=== PATIENT | male | born 1985 | race Caucasian/White ===

== ENCOUNTER 2022-10-23 15:21 | Emergency (ER) | payer OTHER, SELFPAY ==
[2022-10-23] VITALS (34 sets, daily range): BP systolic 100–203; BP diastolic 64–151; PULSE 89–163; RESP 16–32; TEMP 36.4; O2SAT 96–100
--- NOTE | 2022-10-23 15:22 | W.ED.PSYCHS ---
HPI - Psych General: Chief Complaint: Psychiatric Symptoms Stated Complaint: psych Time Seen by Provider: 10/23/22 15:22 Limitations: altered mental status History of Present Illness: Mr. Grovse is a 37-year-old gentleman with unclear past medical history, possibly seizures, presenting to the emergency department for psychiatric evaluation. The patient himself does not provide significant history. He makes multiple statements about recognizing individuals in the emergency department and says that we are in [place]. He also says that his children were born here. He apparently had seizures in route from [place] to [place] via vehicle with his family and was evaluated in [place]. He was started on Keppra and then became agitated over an argument while driving through [facility]. He left the vehicle, which was stopped at the time, and was initially calm and cooperative for EMS however subsequently became agitated. History otherwise limited by patient's current mental state. Associated symptoms: Reports delusions Review of Systems General: Reports: ROS unobtainable due to mental status Physical Exam Const: COMMON NORMALS: alert GENERAL APPEARANCE: cooperative and well developed HENMT: COMMON NORMALS: normocephalic and atraumatic HEAD & SCALP: normocephalic and atraumatic OTHER: Edentulous with upper dentures noted. Eye: COMMON NORMALS: conjunctivae normal CONJUNCTIVA: Yes conjunctivae normal SCLERA: sclerae normal Neck/C-Spine: COMMON NORMALS: supple GENERAL: Yes trachea midline Resp: COMMON NORMALS: normal respiratory effort EFFORT & INSPECTION: Yes able to speak in complete sentences Cardio: COMMON NORMALS: regular rate and regular rhythm RATE: regular rate RHYTHM: regular rhythm GI: COMMON NORMALS: Soft to palpation PALPATION: Yes Soft to palpation and No Tenderness to palpation present (GI) Extremity: GENERAL: Yes normal exam except as noted and No edema Neuro: COMMON NORMALS: moves all extremities SENSORIUM/ORIENTATION: Yes alert and Yes Orientation impaired Psych: ATTITUDE: Yes evasive MOOD & AFFECT: Yes irritable THOUGHT PROCESS: confused THOUGHT CONTENT: Yes delusions INSIGHT: Poor insight present (Psych) JUDGEMENT: Poor judgement present (Psych) Face to Face: Restrn/Seclusion Events leading up to initiation: Demonstrating self-destructive behavior (cutting, hitting coronado etc.) and Combative/Striking out at staff or others Evaluation of patient's immediate situation: Signs of psychological distress Patient reaction since intervention applied: Behaviors/threats have lessened, but still present Recent labs reviewed: Yes Review of medications: Yes Patient's current medical/behavioral condition: No new concerns since last ROS Need for restraint or seclusion is: Continued Attending notified: Attending completed assessment Procedures Intubation Time out performed: Yes sedative: Etomidate Mg Given: 25 paralytic: Rocuronium Mg Given: 70 ET Tube Size: 8 ET Tube Uncuffed: No Tube Secured Depth (cm): 23 Tube Secured Location: lips Tube Placement Confirmation: visualized tube passing through cords, equal breath sounds bilaterally, no breath sounds over epigastrium and confirmation by capnometry Patient Tolerated Procedure: well and no complications Lumbar Puncture Time Out Performed: Yes Patient Position: right lateral decubitus Skin Prep: Povidone-Iodine 1% Local Anesthetic: lidocaine 1% and with epi Amount of anesthesia used (mL): 8 Spinal Needle Gauge: 20G Interspace Used: L4-L5 Opening Pressure (cmH20): 15 Fluid Initially Obtained: clear Complications: none Course Vital Signs: Vital signs: Vital Signs Temperature 97.5 F L 10/23/22 21:41 Pulse Rate 99 10/24/22 00:20 Respiratory Rate 21 H 10/24/22 00:20 Blood Pressure 127/104 10/24/22 00:15 Pulse Oximetry 100 10/24/22 00:25 Oxygen Delivery Me thod Mechanical Ventil ation 10/23/22 23:50 Fraction of Inspir ed Oxygen 30 10/23/22 23:50 MDM - Psych Medical Decision Making 37-year-old gentleman with unclear history presenting with altered mental status. Patient exhibits delusions and evidence of psychosis. Attempted verbal de-escalation which was unsuccessful and subsequently Ativan and Haldol ordered. Patient initially had improvement and then subsequently had reinitiation of aggressive behaviors that was not able to be verbally de-escalated. He required restraints and was serially reassessed per protocol by [id number] reassessment. He subsequently required additional doses of medication including additional benzodiazepines and Geodon for recurrent escalated behavior and threats to self and others. Laboratory studies reveals no leukocytosis, hemoglobin is normal and normal platelet count. Metabolic panel with hypokalemia and evidence of mild metabolic stress likely secondary to toxidrome. Mild transaminitis, normal T. bili. Potassium replenishment ordered. Alcohol level is elevated with UDS pending. Toxidrome is not consistent with simple alcohol intoxication. Patient continued to require additional doses of medication and showed no evidence of clearing. He continues to be markedly agitated including fighting restraints. His vital signs noted worsening tachycardia and at that point I made the decision for patient's safety and further ED evaluation to rule out life-threatening condition that patient required intubation. Prior to intubation no evidence of seizure or abnormal muscle tone/movements. Intubated successfully without complication. X-ray reviewed at bedside with satisfactory ET tube positioning. Postintubation ABG satisfactory with down titrating of FiO2 targeted to SPO2. UDS notable for positive benzodiazepines which are likely iatrogenic. Urinalysis with hematuria which is trace likely secondary to trauma related to Rodgers catheter. Postintubation patient began to have what appeared to be tonic-clonic seizure type episodes and intermittent fasciculations in bilateral upper and lower extremities. He had increased reflexes. This was treated with benzodiazepines in addition to postintubation sedation with fentanyl and propofol including boluses with clinical improvement. Given possibility of status epilepticus or otherwise primary neurologic abnormality with recurrent seizures patient was given phenytoin load. I avoided Keppra given possibility of adverse reaction though I am unsure of prior use and number of doses that patient had, lower clinical suspicion however still avoided out of abundance of caution. Lumbar puncture performed under emergent conditions to evaluate for life-threatening central nervous system infection and cell count is unremarkable. Ultimately given seizure-like episodes with unclear etiology of clinical presentation I believe that the patient requires transfer for higher level of care including critical care with ability to perform inpatient EEG. Patient was accepted by critical care physician at [facility] in [place] and requires emergent transfer via expeditious means for further inpatient evaluation and treatment. Patient transferred in critical but stable condition. Additional treatments in ED included potassium replenishment, crystalloid fluid boluses of 2 L, banana bag. Sedation for mechanical ventilation with propofol and fentanyl requiring intermittent boluses and titration for adequate sedation. Blood cultures obtained during ED course and pending. Send out lab for meningeal encephalitis viral panel pending. The exact etiology of patient's symptoms remains unclear. There certainly are limitations to urine drug screen and toxic ingestion remains a possibility however differential had to remain broad given urinalysis results. Seizure disorder/status epilepticus additionally a strong consideration. Subsequent to acceptance at outside facility I did receive supplemental information provided by family to nurse that patient does have a history of alcohol abuse and possible seizures in this context though this is still limited. Alcohol withdrawal would also be a consideration however withdrawal to the point of psychosis with a alcohol level still in the 100s which require significant daily consumption. Additionally I would have expected more clinical improvement from benzodiazepines and antipsychotics if this were the case. ED course was significantly prolonged given evolution of patient's clinical presentation and therefore evolution of predicted disposition. Initially patient presented like psychosis or sympathomimetic ingestion and would have been admitted to neuropsych unit if calm, subsequently he would have required improvement in psychosis and electrolyte replenishment. He subsequently developed possible seizure-like activity as noted and therefore required transfer. Medical Records I reviewed the patient's medical records. Lab Data I reviewed the patient's lab results. 10/23/22 16:20 10/23/22 16:20 Radiology Impressions Chest X-Ray 10/23/22: IMPRESSION: No acute findings. Head CT 10/23/22: IMPRESSION: 1. No acute intracranial abnormality. Laboratory Results WBC 6.3 10^3/uL (4.0-10.0) 10/23/22 16:20 RBC 4.32 10^6/uL (4.1-5.3) 10/23/22 16:20 Hgb 14.8 g/dL (11.7-16.6) 10/23/22 16:20 Hct 42.8 % (42.0-52.0) 10/23/22 16:20 MCV 99.1 fl (80-94) H 10/23/22 16:20 MCH 34.3 pg (28.0-34.0) H 10/23/22 16:20 MCHC 34.6 g/dL (30.0-36.0) 10/23/22 16:20 RDW 11.2 % (12.1-15.1) L 10/23/22 16:20 Plt Count 150 10^3/cmm (130-400) 10/23/22 16:20 MPV 11.4 fL (7.4-10.4) H 10/23/22 16:20 Neut % (Auto) 68.3 % 10/23/22 16:20 Lymph % (Auto) 14.7 % 10/23/22 16:20 Garrard % (Auto) 15.3 % 10/23/22 16:20 Eos % (Auto) 0.3 % 10/23/22 16:20 Baso % (Auto) 0.8 % 10/23/22 16:20 Neut # (Auto) 4.28 10^3/uL (1.8-7.7) 10/23/22 16:20 Lymph # (Auto) 0.9 10^3/uL (0.8-4.8) 10/23/22 16:20 Garrard # (Auto) 1.0 10^3/uL (0.2-0.9) H 10/23/22 16:20 Eos # (Auto) 0.0 10^3/uL (0.0-0.8) 10/23/22 16:20 Baso # (Auto) 0.1 10^3/uL (0.0-0.1) 10/23/22 16:20 Nucleated RBC % (auto) 0 % 10/23/22 16:20 Nucleated RBCs # 0.0 /100WBC 10/23/22 16:20 Specimen Type Arterial 10/23/22 20:09 Sample Site Brachial, left 10/23/22 20:09 ABG pH 7.42 (7.35-7.45) 10/23/22 20:09 ABG pCO2 37.7 mmHg (35-45) 10/23/22 20:09 ABG pO2 166.0 mmHg (80.0-100.0) H 10/23/22 20:09 ABG HCO3 24.6 mmol/L (22-26) 10/23/22 20:09 ABG O2 Saturation 99.9 10/23/22 20:09 ABG Base Excess 0.3 mmol/L (-2.0-2.0) 10/23/22 20:09 Juan Francisco Test Pos 10/23/22 20:09 A-a O2 Gradient 8.9 mmHg (5-10) 10/23/22 20:09 Hematocrit 45.6 % (42-52) 10/23/22 20:09 Hgb O2 Saturation 97.5 % (95-100) 10/23/22 20:09 Carboxyhemoglobin 2.2 %THgb (0.4-20.1) 10/23/22 20:09 Methemoglobin 0.2 % (0.4-1.5) L 10/23/22 20:09 Total Hemoglobin 14.9 g/dL (14-18) 10/23/22 20:09 Sodium 141.0 mmol/L (131-143) 10/23/22 20:09 Potassium 2.6 mmol/L (3.5-5.0) L 10/23/22 20:09 Glucose 113.0 mg/dL (70-115) 10/23/22 20:09 Ionized Calcium 1.1 mmol/L (1.1-1.4) 10/23/22 20:09 O2 Delivery Device Vent 10/23/22 20:09 FiO2 40.0 % 10/23/22 20:09 Tidal Volume 0.50 10/23/22 20:09 PEEP 7.0 cmH20 10/23/22 20:09 Gutter Mouth Cutter ID [email or web address] 10/23/22 20:09 Sodium 136 mmol/L (136-145) 10/23/22 16:20 Potassium 2.7 mmol/L (3.5-5.1) L* 10/23/22 16:20 Chloride 96 mmol/L (98-107) L 10/23/22 16:20 Carbon Dioxide 20 mmol/L (22-29) L 10/23/22 16:20 Anion Gap 22.7 (5-19) H 10/23/22 16:20 BUN 3 mg/dL (6-20) L 10/23/22 16:20 Creatinine 0.7 mg/dL (0.7-1.2) 10/23/22 16:20 GFR Calculation 127.6 mL/min (90-130) 10/23/22 16:20 Glucose 107 mg/dL (65-115) 10/23/22 16:20 Calculated Osmolality 279 mOsm/kg (285-295) L 10/23/22 16:20 Calcium 8.6 mg/dL (8.5-10.5) 10/23/22 16:20 Total Bilirubin 0.7 mg/dL (0.15-1.2) 10/23/22 16:20 AST 116 U/L (0-40) H 10/23/22 16:20 ALT 83 U/L (0-41) H 10/23/22 16:20 Alkaline Phosphatase 142 U/L (40-130) H 10/23/22 16:20 Creatine Kinase 256 U/L (39-308) 10/23/22 16:20 Total Protein 6.6 g/dL (6.6-8.7) 10/23/22 16:20 Albumin 3.8 g/dL (3.5-5.2) 10/23/22 16:20 Globulin 2.8 g/dL (1.3-4.6) 10/23/22 16:20 TSH 2.47 uIU/mL (0.27-4.20) 10/23/22 16:20 Urine Color Yellow (Yellow) 10/23/22 20:05 Urine Appearance Clear (CLEAR) 10/23/22 20:05 Urine pH 5 (5-7) 10/23/22 20:05 Ur Specific Scott 1.020 (1.005-1.030) 10/23/22 20:05 Urine Protein Neg (Negative) 10/23/22 20:05 Urine Glucose (UA) Norm (Normal) 10/23/22 20:05 Urine Ketones Negative (Negative) 10/23/22 20:05 Urine Blood 2+ (Negative) H 10/23/22 20:05 Urine Nitrate Negative (Negative) 10/23/22 20:05 Urine Bilirubin Neg (Negative) 10/23/22 20:05 Urine Urobilinogen Norm mg/dL (Negative) 10/23/22 20:05 Ur Leukocyte Esterase Negative (Negative) 10/23/22 20:05 Urine RBC 5-10 /hpf (0-2) H 10/23/22 20:05 Urine WBC 0-4 /hpf (0-5) H 10/23/22 20:05 Ur Squamous Epith Cells 0-4 /hpf (0-5) H 10/23/22 20:05 Amorphous Sediment Not Reportable 10/23/22 20:05 Urine Bacteria Not Reportable 10/23/22 20:05 CSF Appearance Clear (CLEAR) 10/23/22 22:45 CSF Color Colorless (COLORLESS) 10/23/22 22:45 CSF Specific Scott 1.005 10/23/22 22:45 CSF WBC 0 /uL (0-5) 10/23/22 22:45 CSF RBC 0 10^3/uL (0-0) 10/23/22 22:45 CSF Mononuclear # Auto Not Reportable 10/23/22 22:45 CSF Mononuclear WBCs % Not Reportable 10/23/22 22:45 CSF Polynuclear WBCs # Not Reportable 10/23/22 22:45 CSF Polynuclear WBCs % Not Reportable 10/23/22 22:45 CSF Diff Comment Yes 10/23/22 22:45 CSF Glucose 78 mg/dL (40-70) H 10/23/22 22:45 CSF Total Protein 25 mg/dL (15-45) 10/23/22 22:45 CSF Lyme IgG Ab 45 kDa Cancelled 10/23/22 Unknown Salicylates < 0.3 mg/dL (3-10) L 10/23/22 16:20 Urine Opiates Screen Negative ng/mL (Negative) 10/23/22 20:05 Acetaminophen < 5.0 ug/mL (10-30) L 10/23/22 16:20 Ur Barbiturates Screen Negative ng/mL (Negative) 10/23/22 20:05 Ur Phencyclidine Scrn Negative ng/mL (Negative) 10/23/22 20:05 Ur Amphetamines Screen Negative ng/mL (Negative) 10/23/22 20:05 U Benzodiazepines Scrn Positive ng/mL (Negative) H 10/23/22 20:05 Urine Cocaine Screen Negative ng/mL (Negative) 10/23/22 20:05 U Marijuana (THC) Screen Negative ng/mL (Negative) 10/23/22 20:05 Ethyl Alcohol 149 mg/dL (0-10) H 10/23/22 16:20 Lyme Ab (Western Blot) Cancelled 10/23/22 Unknown Lyme IgG 18 kDa Band Cancelled 10/23/22 Unknown Lyme IgG 23 kDa Band Cancelled 10/23/22 Unknown Lyme IgG 28 kDa Band Cancelled 10/23/22 Unknown Lyme IgG 30 kDa Band Cancelled 10/23/22 Unknown Lyme IgG 39 kDa Band Cancelled 10/23/22 Unknown Lyme IgG 41 kDa Band Cancelled 10/23/22 Unknown Lyme IgG 58 kDa Band Cancelled 10/23/22 Unknown Lyme IgG 66 kDa Band Cancelled 10/23/22 Unknown Lyme IgG 93 kDa Band Cancelled 10/23/22 Unknown Lyme IgM Ab (WB) Cancelled 10/23/22 Unknown Lyme Disease IgG Ab (IFA) Cancelled 10/23/22 Unknown Lyme IgG Ab (Immblot) Cancelled 10/23/22 Unknown Lyme IgM 23 kDa Band Cancelled 10/23/22 Unknown Lyme IgM 39 kDa Band Cancelled 10/23/22 Unknown Lyme IgM 41 kDa Band Cancelled 10/23/22 Unknown E. chaffeensis IgG Ab Cancelled 10/23/22 Unknown E. chaffeensis IgM Ab Cancelled 10/23/22 Unknown E. chaffeensis Interp Cancelled 10/23/22 Unknown E. chaffeensis Comment Cancelled 10/23/22 Unknown Rickettsia IgG Titer Cancelled 10/23/22 Unknown Rickettsia IgG Ab Cancelled 10/23/22 Unknown Rickettsia IgM Titer Cancelled 10/23/22 Unknown Rickettsia IgM Ab Cancelled 10/23/22 Unknown Critical Care Time Critical Care Time: Critical Care Time: Yes Total Critical Care Time: 160 Attestation: Due to a high probability of clinically significant, possibly life threatening deterioration, the patient required my highest level of attention and preparedness to intervene emergently and I personally spent this critical care time directly and personally managing the patient. This critical care time included obtaining a history; examining the patient; pulse oximetry; ordering and review of laboratory and imaging studies; arranging urgent treatment with development of a management plan; evaluation of patient's response to treatment; frequent reassessment; and, discussions with other providers as applicable. It was exclusive of separately billable procedures. Primary system involved is neuro. Discharge Plan Discharge Patient Disposition: Xfer Short-Term Hosp Clinical Impression: Acute psychosis, Acute alteration in mental status, Alcohol intoxication, Observed seizure-like activity, Acute hypokalemia, Transaminitis Condition: Stable Coding Level of Care Code ED Intake Specialist for Marleny Gil
--- NOTE | 2022-10-23 15:31 | CTR_ITS ---
PROCEDURE INFORMATION: Exam: CT Head Without Contrast Exam date and time: 10/23/2022 8:33 PM Age: 37 years old Clinical indication: Altered mental status/memory loss; Patient HX: AMS. Severe disorientation with history of seizure disorder. Patient required intubation due to losing airway. TECHNIQUE: Imaging protocol: Computed tomography of the head without contrast. Radiation optimization: All CT scans at this facility use at least one of these dose optimization techniques: automated exposure control; mA and/or kV adjustment per patient size (includes targeted exams where dose is matched to clinical indication); or iterative reconstruction. REPORTING DATA: Count of CT and Cardiac NM exams in prior 12 months: This patient has received 0 known CTs and 0 known cardiac nuclear medicine studies in the 12 months prior to the current study. COMPARISON: No relevant prior studies available. RADIATION DOSE METRICS: Total DLP (mGy-cm): 1139.85 FINDINGS: Brain: Mild cortical volume loss. No abnormal brain attenuation. Small CSF densities in the inferior basal ganglia most likely represent perivascular spaces. No intracranial hemorrhage. Cerebral ventricles: No ventriculomegaly. Paranasal sinuses: Visualized sinuses are unremarkable. No fluid levels. Mastoid air cells: Visualized mastoid air cells are well aerated. Bones/joints: Unremarkable. No acute fracture. Soft tissues: Unremarkable. CT/CT head wo con* [id number] IMPRESSION: 1. No acute intracranial abnormality.
--- NOTE | 2022-10-23 15:31 | XRR_ITS ---
PROCEDURE INFORMATION: Exam: XR Chest Exam date and time: 10/23/2022 8:02 PM Age: 37 years old Clinical indication: Device placement; Ett placement (vent status); Additional info: Post intubation TECHNIQUE: Imaging protocol: Radiologic exam of the chest. Views: 1 view. COMPARISON: No relevant prior studies available. FINDINGS: Tubes, catheters and devices: Intubation with tip 3.8 cm above the leroy. Lungs: Unremarkable. No consolidation. Pleural spaces: Unremarkable. No pleural effusion. No pneumothorax. Heart/Mediastinum: Unremarkable. No cardiomegaly. Bones/joints: Unremarkable. XR/XR chest 1V portable [id number] IMPRESSION: No acute findings.
--- NOTE | 2022-10-23 15:31 | ECG_ITS ---
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 Measurements Intervals [place] Rate: 113 P: 77 TN: 155 QRS: 47 QRSD: 113 T: 79 QT: 352 QTc: 483 Interpretive Statements SINUS TACHYCARDIA MODERATE INTRAVENTRICULAR CONDUCTION DELAY [110+ ms QRS DURATION] ABNORMAL RHYTHM ECG No previous ECG available for comparison Electronically Signed On 10-24-2022 4:56:20 CDT by Noni Cruz M.D. [id number]
[2022-10-23] MEDS: LORazepam 2 mg/mL INJ 1 mL IM ×3 (15:49→19:01)
[2022-10-23] MEDS: haloperidol inj 5 mg/mL INJ 1 mL IM (15:49)
--- NOTE | 2022-10-23 16:18 | PC.NURSE ---
Patient was brought in by EMS. Patient would not follow commands to dress out into scrubs. Nursing staff redirected patient several times to change into scrubs and patient refused. Patient is altered and became a harm to himself and staff. Patient was combative and nursing staff went hands on. Patient was given meds at 1549 and put in the restraint bed at 1551. At 1557 patient slipped out of upper extremity restraints, nursing staff reapplied restraints. Patient was read his rights where he continued to yell and cuss at staff. Patient was educated about calming down and stop being combative then restraints would be removed.
[2022-10-23 16:31] LABS: Basophils # 0.1 10^3/uL (0.0-0.1); Basophils % 0.8 %; Eosinophils % 0.3 %; Hematocrit 42.8 % (42.0-52.0); Hemoglobin 14.8 g/dL (11.7-16.6); Lymphocytes # 0.9 10^3/uL (0.8-4.8); Lymphocytes % 14.7 %; Mean Corpuscular HGB Conc 34.6 g/dL (30.0-36.0); Mean Corpuscular Hemoglobin 34.3 pg (28.0-34.0); Mean Corpuscular Volume 99.1 fl (80-94); Mean Platelet Volume 11.4 fL (7.4-10.4); Monocytes % 15.3 %; Neutrophils # 4.28 10^3/uL (1.8-7.7); Neutrophils % 68.3 %; Nucleated Red Blood Cells % 0 %; Platelet Count 150 10^3/cmm (130-400); Red Blood Count 4.32 10^6/uL (4.1-5.3); Red Cell Distribution Width 11.2 % (12.1-15.1); White Blood Count 6.3 10^3/uL (4.0-10.0)
[2022-10-23 17:20] LABS: Alanine Aminotransferase 83 U/L (0-41); Albumin Level 3.8 g/dL (3.5-5.2); Alcohol Level 149 mg/dL (0-10); Alkaline Phosphatase 142 U/L (40-130); Anion Gap 22.7 (5-19); Aspartate Amino Transferase 116 U/L (0-40); Blood Urea Nitrogen 3 mg/dL (6-20); Calcium 8.6 mg/dL (8.5-10.5); Carbon Dioxide 20 mmol/L (22-29); Chloride 96 mmol/L (98-107); Globulin 2.8 g/dL (1.3-4.6); Glomerular Filtration Rate 127.6 mL/min (90-130); Glucose 107 mg/dL (65-115); Osmolality Calculated 279 mOsm/kg (285-295); Sodium 136 mmol/L (136-145); Thyroid Stimulating Hormone 2.47 uIU/mL (0.27-4.20); Total Bilirubin 0.7 mg/dL (0.15-1.2); Total Protein 6.6 g/dL (6.6-8.7)
[2022-10-23] MEDS: ziprasidone 20 mg/mL SDV IM ×2 (17:23→19:15)
[2022-10-23 17:26] LABS: Acetaminophen < 5.0 ug/mL (10-30); Potassium 2.7 mmol/L (3.5-5.1); Salicylate < 0.3 mg/dL (3-10)
--- NOTE | 2022-10-23 17:54 | PC.NURSE ---
Patient read 96 hr rights by Grip Assembler and accompanied by [facility] security representative William @1600. Patient was not receptive of education on 96 hr hold being verbally explained to him by Grip Assembler. 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 Education attempted to be given X3 on 96 hr hold process and procedures. Patient refused to hear said education. Patient copy left at bedside with patient, and patient ultimately balled paper up and threw at [facility] emergency communications officer.
--- NOTE | 2022-10-23 18:00 | PC.NURSE ---
Clamp Forklift Operator and Security remains at bedside with patient since his initial admittance to ER. Patient aggressive and uncooperative towards nursing staff and security. Multiple attempts to deescalate and redirect patient and decrease aggressive behavior. At one point pt lunged towards nursing staff, and was then placed into restraints and given ordered medications. Patient was released from restraints a short time later, and then became aggressive towards staff once again while trying to barge his way through his assigned ER room door to leave stating he was going to get a fucking cigarette and ya'll cannot stop me . Patient then began destroying the ER room by ripping trim pieces off of wall, and trying to stick objects inside of electrical outlets. Patient placed back into restraints and more order medications given. Patient has made numerous statements believing that he is being held inside of a psych hospital facility in his home state of [place]. And that he has known the staff that is present and assisting in his care for years . Clamp Forklift Operator spoke with patient's mother on the phone, and mother stated that patient was recently inside of a psychiatric facility in which he was prescribed medications, and educated not to drink while taking these medications. That the patient was driving from [facility] with brother towards [place] to drop off his kids, and patient became irate and attempted to jump from moving vehicle and that patient has been drinking heavily.
[2022-10-23 18:02] LABS: Creatine Phosphokinase 256 U/L (39-308)
[2022-10-23] MEDS: lidocaine 1% 5 ML in potassium chloride premix 100 ML 26.25 ML IV (18:25)
[2022-10-23] MEDS: lactated ringers 1,000 ML 999 ML IV (18:25)
--- NOTE | 2022-10-23 18:30 | PC.NURSE ---
Restraints were removed and patient was pacing the room. Patient tried to stick objects in the outlets, patient started punching the coronado. Patient was redirected to stop but continued and started to destroy room. Patient was put back into restraint bed and meds were given. Patient has carroll on right hand knuckles and bilaterally elbows that was on patient before arriving.
--- NOTE | 2022-10-23 19:15 | PC.NURSE ---
Resumed care@ 1915 patient intubated and taken out of violent restraints.
[2022-10-23] MEDS: folic acid 1 MG, multivitamin inj 10 ML, thiamine 100 MG in sodium chloride 0.9% 1,000 ML 252.8 MG IV (19:58)
--- NOTE | 2022-10-23 19:58 | PC.NURSE ---
Patient on vital machine, heart rate 163, patient not relaxing despite IM medication routes. Patient shaking violently. Dr Shultz notified unable to obtain EKG as patient is not cooperative. Dr Shultz ordered to intubate patient. 1949 patient given 25mg etomidate, Richard 80mg pushed. Patient intubated at 1952, 8.0 size tube, 23 at the lips. Respiratory at bedside and dr shultz at bedside.
--- NOTE | 2022-10-23 20:02 | PC.NURSE ---
Patient now in two point restraints only, patient intubated at this time.
[2022-10-23] MEDS: etomidate 2 mg/mL INJ SDV 10 mL 25 MG IVP (20:06)
[2022-10-23] MEDS: fentaNYL 50 mcg/mL INJ 2mL 100 MCG IVP (20:10)
[2022-10-23 20:20] LABS: ABG PCO2 37.7 mmHg (35-45); ABG PH Result 7.42 (7.35-7.45); Alveolar-Arterial Oxygen Gradi 8.9 mmHg (5-10); Arterial Blood Gas Hematocrit 45.6 % (42-52); Base Excess ABG 0.3 mmol/L (-2.0-2.0); Blood Gas Allen Test Pos; Blood Gas Sample Site Brachial, left; Blood Gas Sample Type Arterial; Carboxyhemoglobin 2.2 %THgb (0.4-20.1); HCO3 ABG 24.6 mmol/L (22-26); HGB O2 Sat 97.5 % (95-100); Ionized Calcium Level - ABG 1.1 mmol/L (1.1-1.4); Methemoglobin 0.2 % (0.4-1.5); Oxygen Device VENT; Oxygen Saturation ABG 99.9; Potassium Level - ABG 2.6 mmol/L (3.5-5.0); Total Hemoglobin 14.9 g/dL (14-18)
[2022-10-23 20:24] LABS: Add Urine Microscopic? YES; Bilirubin Urine Neg (Negative); Blood Urine 2+ (Negative); Glucose Urine UA Norm (Normal); Ketones Urine Negative (Negative); Leukocyte Esterase Urine Negative (Negative); Nitrate Urine Negative (Negative); Protein Urine Neg (Negative); Squamous Epithelial Cell Urine 0-4 /hpf (0-5); Urine Appearance Clear (CLEAR); Urine Color Yellow (Yellow); Urobilinogen Urine Norm (Negative); WBC Urine 0-4 /hpf (0-5); pH Urine 5 (5-7)
[2022-10-23 20:25] LABS: Add Urine Culture? No
[2022-10-23] MEDS: propofol 1,000 MG/100 ML INJ 2.45 MG IV (20:30)
[2022-10-23 20:38] LABS: Amphetamines Screen Urine Negative (Negative); Barbiturates Screen Urine Negative (Negative); Benzodiazepines Screen Urine Positive (Negative); Cocaine Screen Urine Negative (Negative); Opiate Screen Urine Negative (Negative); PCP Screen Urine Negative (Negative); THC Screen Urine Negative (Negative)
--- NOTE | 2022-10-23 21:25 | PC.NURSE ---
RN at bedside noted pt to be shaking with what appears to be seizure like activity. MD notified. Orders received.
[2022-10-23] MEDS: LORazepam 2 mg/mL INJ 1 mL IVP ×2 (21:30→21:48)
--- NOTE | 2022-10-23 22:08 | PC.NURSE ---
RN x 2 at bedside for critical care
--- NOTE | 2022-10-23 22:09 | PC.NURSE ---
rn x 2 at bedside for critical care
--- NOTE | 2022-10-23 22:30 | PC.NURSE ---
MD at bedside gave 100mcg bolus of Fentanyl and 40mg Bolus of propofol
--- NOTE | 2022-10-23 22:41 | PC.NURSE ---
Propofol increased to 30 by MD at bedside. Assisting MD with LP at this time. Emergent consent completed
[2022-10-23 23:26] LABS: Appearance CSF CLEAR (CLEAR)
[2022-10-23 23:27] LABS: CSF Specific Gravity 1.005; Color CSF COLORLESS (COLORLESS); Red Blood Cell CSF 0 10^3/uL (0-0); White Blood Cell CSF 0 /uL (0-5)
[2022-10-23 23:28] LABS: Pathology Referral Yes
[2022-10-23 23:33] LABS: Glucose CSF 78 mg/dL (40-70); Total Protein CSF 25 mg/dL (15-45)
[2022-10-24] VITALS: BP 130/98; PULSE 94; RESP 15; O2SAT 100
[2022-10-24 00:05] VITALS: PULSE 103; RESP 16; O2SAT 100
[2022-10-24 00:10] VITALS: PULSE 98; RESP 21; O2SAT 100
[2022-10-24 00:15] VITALS: BP 127/104; PULSE 99; RESP 19; O2SAT 100
[2022-10-24 00:20] VITALS: PULSE 99; RESP 21; O2SAT 100
[2022-10-24 00:25] VITALS: O2SAT 100
[2022-10-24] MEDS: LORazepam 2 mg/mL INJ 1 mL 4 MG IVP (00:27)
[2022-10-24] MEDS: propofol 1,000 MG/100 ML INJ 14.7 MG IV (00:42)
--- NOTE | 2022-10-24 01:04 | PC.NURSE ---
Pt sent with Fentanyl gtt at 75mcg/hr and Propofol at 30mcg/kg/min
--- NOTE | 2022-10-24 13:03 | DCPLANNER ---
TCM called patient due to no primary care physician - patient does not live in the area.
== END 2022-10-24 01:09 | disposition short-term general hospital (02) ==
PROVIDERS: Emergency Provider Emergency Medicine
DX: F23 Brief psychotic disorder (principal); R41.82 Altered mental status, unspecified; F10.129 Alcohol abuse with intoxication, unspecified; R56.9 Unspecified convulsions; E87.6 Hypokalemia; R74.01 Elevation of levels of liver transaminase levels; Y90.6 Blood alcohol level of 120-199 mg/100 ml
CPT/HCPCS: 36415; 36600; 51702; 70450; 71045; 80051; 80053; 80306; 80307; 80503; 81001; 82330; 82550; 82805; 82945; 84157; 84315; 84443; 85025; 86603; 86653; 86658; 86695; 86696; 86710; 86735; 86765; 86788; 86789; 87040; 87070; 87075; 87205; 87798; 89050; 93005; 94002; 94799; 96365; 96366; 96367; 96372; 96375; 96376; 99291; 99292; J1165; J1630; J2060; J2704; J3010; J3411; J3480; J3486; J3490; J7030; J7050; J7120